=== PATIENT | male | born 1995 | race Caucasian/White ===

== ENCOUNTER 2018-05-19 09:29 | Day surgery (SDC) | payer OTHER ==
[2018-05-19] MEDS: SOD CHLORIDE 0.9% 1,000 ML IV (10:49)
[2018-05-19] MEDS ORDERED: CEFAZOLIN 2 GM/50 ML (PMX) 50 ML IVPB (11:00)
[2018-05-19] MEDS ORDERED: MEPERIDINE 25 MG INJ IV (13:30)
[2018-05-19] MEDS ORDERED: ONDANSETRON 4 MG INJ IV ×2 (13:30→15:30)
[2018-05-19] MEDS ORDERED: oxyCODONE 5 MG TAB PO (13:30)
[2018-05-19] MEDS ORDERED: HYDROmorphONE 1 MG/5 ML IV SYRINGE IV ×3 (13:30)
[2018-05-19] MEDS ORDERED: PROCHLORPERAZINE 10 MG INJ IV (13:30)
[2018-05-19] MEDS ORDERED: DIPHENHYDRAMINE 50 MG INJ IV (13:30)
[2018-05-19] MEDS ORDERED: FENTAnyl 50 MCG/ML VIAL IV ×3 (13:30)
[2018-05-19] MEDS ORDERED: ACETAMINOPHEN 1000MG/100ML IV 100 ML (13:45)
[2018-05-19] MEDS ORDERED: PROPOFOL 20 ML ×2 (13:45→14:04)
[2018-05-19] MEDS ORDERED: SUCCINYLCHOLINE CHLORIDE 100 MG/5 ML SYG IV (13:45)
[2018-05-19] MEDS ORDERED: MIDAZOLAM 1 MG/ML 2 ML INJ ×2 (13:45→14:02)
[2018-05-19] MEDS ORDERED: LIDOCAINE 2% (SDV) 5 ML INJ (13:45)
[2018-05-19] MEDS ORDERED: FENTAnyl 50 MCG/ML VIAL (13:45)
[2018-05-19] MEDS ORDERED: ONDANSETRON 4 MG INJ (14:02)
[2018-05-19] MEDS ORDERED: DEXAMETHASONE 4 MG/ML 1 ML INJ (14:02)
[2018-05-19] MEDS ORDERED: FAMOTIDINE 20 MG INJ (14:03)
[2018-05-19] MEDS ORDERED: CEFAZOLIN 1 GM INJ (14:09)
[2018-05-19] MEDS ORDERED: HYDROmorphONE 2 MG/ML SYG (14:22)
[2018-05-19] MEDS: BACITRACIN 50000 UNITS INJ (14:28)
[2018-05-19] MEDS: POLYMYXIN B 500000 UNIT INJ (14:29)
[2018-05-19] MEDS: BUPIVACAINE 0.25%/EPI (MDV) 50 ML VIAL INJ (14:29)
[2018-05-19] MEDS: BACITRACIN/POLYMYXIN 28.35 GM OINT TOP (14:30)
[2018-05-19] MEDS ORDERED: HYDROCODONE/APAP (5/325) TAB PO ×2 (15:30)
[2018-05-19] MEDS ORDERED: IBUPROFEN 600 MG TAB PO (15:30)
[2018-05-19] MEDS ORDERED: morphine 2 MG INJ IV (15:30)
[2018-05-19] MEDS ORDERED: KETOROLAC 30 MG INJ IV (15:30)
== END 2018-05-19 17:20 | disposition home or self-care (01) ==
LOC: SDS 09:29
DX: L05.91 Pilonidal cyst without abscess (principal)
CPT/HCPCS: 11772; 88304